=== PATIENT | male | born 1950 | race Caucasian/White ===

== ENCOUNTER 2018-10-04 19:10 | Emergency (ER) | payer MEDICARE, OTHER ==
[~2018-10-04] VITALS: Ht 188 cm; Wt 112.5 kg
[~2018-10-04 19:10] MED LIST: CARV-50 PO
[2018-10-04] MEDS ORDERED: oxymetazoline 15 ML nasal spray NS ONE (19:30)
[2018-10-04 20:12] VITALS: BP 169/111
== END 2018-10-04 21:22 | disposition home or self-care (01) ==
LOC: ER 19:11
DX: R04.0 Epistaxis (principal); E78.00 Pure hypercholesterolemia, unspecified; I10 Essential (primary) hypertension; Z90.49 Acquired absence of other specified parts of digestive tract; Z98.890 Other specified postprocedural states; Z88.8 Allergy status to other drugs, medicaments and biological substances; Z79.899 Other long term (current) drug therapy
CPT/HCPCS: 99282

== ENCOUNTER 2018-12-14 14:34 | Outpatient (CLI) | payer MEDICARE, OTHER ==
[2018-12-14 15:18] LABS: BASOPHILS % (AUTO) 0.7 % (0-1); EOSINOPHILS # (AUTO) 0.3 X10'3 (0-0.9); HEMATOCRIT 44.7 % (42.0-52.0); HEMOGLOBIN 14.8 g/dl (14.0-17.9); LYMPHOCYTES # (AUTO) 1.8 X10'3 (1.1-4.8); LYMPHOCYTES % (AUTO) 26.4 % (21-51); MEAN CORPUSCULAR HEMOGLOBIN 29.2 PG (27.0-31.0); MEAN CORPUSCULAR VOLUME 88.6 FL (78-98); MEAN PLATELET VOLUME 8.4 FL (7.4-10.4); MONOCYTES # (AUTO) 0.5 X10'3 (0-0.9); MONOCYTES % (AUTO) 7.2 % (2-12); NEUTROPHILS # (AUTO) 4.3 X10'3 (1.8-7.7); NEUTROPHILS % (AUTO) 61.7 % (42-75); PLATELET COUNT 203 X10'3 (140-440); RED BLOOD COUNT 5.05 X10'6 (4.70-6.10); RED CELL DISTRIBUTION WIDTH 14.1 % (11.5-14.5)
[2018-12-14 15:30] LABS: PARTIAL THROMBOPLASTIN TIME 29 SECONDS (22-32); PROTHROMBIN TIME 10.3 SECONDS (9.0-12.0)
[2018-12-14 15:38] LABS: ALANINE AMINOTRANSFERASE 23 U/L (12-78); ALBUMIN 3.2 G/DL (3.4-5.0); ALKALINE PHOSPHATASE 91 IU/L (46-116); ANION GAP 8 (8-16); ASPARTATE AMINO TRANSFERASE 13 U/L (10-37); BILIRUBIN,TOTAL 0.2 MG/DL (0.1-1.0); BLOOD UREA NITROGEN 28 MG/DL (7-18); BUN/CREATININE RATIO 15.4 (5.4-32.0); CALCIUM 8.7 MG/DL (8.5-10.1); CHLORIDE 107 MMOL/L (99-107); CREATININE 1.82 MG/DL (0.60-1.10); GLUCOSE 130 MG/DL (70-104); SODIUM 142 MMOL/L (135-145); TOTAL CARBON DIOXIDE 27.4 MMOL/L (24-32); TOTAL PROTEIN 6.4 G/DL (6.4-8.2); eGFR 37 ML/MIN
== END 2018-12-14 23:59 | disposition home or self-care (01) ==
LOC: LAB 14:34
PROVIDERS: ATTEND Otolaryngology
DX: D69.1 Qualitative platelet defects (principal); Z88.6 Allergy status to analgesic agent
CPT/HCPCS: 36415; 80053; 85025; 85576; 85610; 85730

== ENCOUNTER 2019-10-19 18:44 | Inpatient (IN) | payer MEDICARE, OTHER ==
[~2019-10-19] VITALS: Ht 188 cm; Wt 107.7 kg
[2019-10-19] MEDS ORDERED: normal saline 1000ml 1,000 ML IVB ONE (18:56)
[2019-10-19 19:25] LABS: BASOPHILS # (AUTO) 0.1 X10'3 (0-0.2); BASOPHILS % (AUTO) 0.6 % (0-1); EOSINOPHILS # (AUTO) 0.2 X10'3 (0-0.9); EOSINOPHILS % (AUTO) 1.6 % (0-6); HEMATOCRIT 43.8 % (42.0-52.0); HEMOGLOBIN 14.8 g/dl (14.0-17.9); LYMPHOCYTES # (AUTO) 1.3 X10'3 (1.1-4.8); LYMPHOCYTES % (AUTO) 10.3 % (21-51); MEAN CORPUSCULAR HEMOGLOBIN 30.3 PG (27.0-31.0); MEAN CORPUSCULAR HGB CONC 33.7 g/dL (33.0-36.5); MEAN CORPUSCULAR VOLUME 89.8 FL (78-98); MEAN PLATELET VOLUME 8.4 FL (7.4-10.4); MONOCYTES # (AUTO) 1.1 X10'3 (0-0.9); MONOCYTES % (AUTO) 8.7 % (2-12); NEUTROPHILS # (AUTO) 9.8 X10'3 (1.8-7.7); NEUTROPHILS % (AUTO) 78.8 % (42-75); PLATELET COUNT 182 X10'3 (140-440); RED BLOOD COUNT 4.88 X10'6 (4.70-6.10); RED CELL DISTRIBUTION WIDTH 13.7 % (11.5-14.5); WHITE BLOOD COUNT 12.4 X10'3 (4.5-11.0)
[2019-10-19 19:35] LABS: ALANINE AMINOTRANSFERASE 20 U/L (12-78); ALBUMIN 3.2 G/DL (3.4-5.0); ALBUMIN/GLOBULIN RATIO 0.9 (1.1-1.5); ALKALINE PHOSPHATASE 92 IU/L (46-116); ANION GAP 8 (8-16); ASPARTATE AMINO TRANSFERASE 14 U/L (10-37); BILIRUBIN,TOTAL 0.5 MG/DL (0.1-1.0); BLOOD UREA NITROGEN 27 MG/DL (7-18); CALCIUM 8.8 MG/DL (8.5-10.1); CHLORIDE 107 MMOL/L (99-107); CREATININE 1.93 MG/DL (0.60-1.10); GLUCOSE 162 MG/DL (70-104); LIPASE 131 U/L (73-393); POTASSIUM 4.4 MMOL/L (3.5-5.1); SODIUM 140 MMOL/L (135-145); TOTAL CARBON DIOXIDE 24.7 MMOL/L (24-32); TOTAL PROTEIN 6.7 G/DL (6.4-8.2); eGFR 35 ML/MIN
--- NOTE | 2019-10-19 20:14 | NUR ---
pt up out of bed to have bm . most of the OUTPUT IS CASTRO BLOOD MIXED WITH STOOL . PT DENIES TAKING BLOOD THINNERS ADN IBPROFEN HE HAS ONLY ONE KIDNEY. PT REPORTED FEELING FAINT . APPLIED O2 VIA NC FOR A DROP IN SATS TO 93 % RA IMMEDIATE INCREASE TO 97 % ON 3 LITERS. HEART MONITOR APPLIED AND DR BLOOD CALLED TO THE ROOM
[2019-10-19] MEDS ORDERED: tranexamic acid 100mg/ml inj. IV ONE (20:15)
[2019-10-19] MEDS ORDERED: normal saline 1000ML IV soln IVB ONE (20:15)
[2019-10-19] MEDS ORDERED: tranexamic acid inj. 1,080 MG in normal saline 100ml IV soln 100 ML IV ONE (20:20)
[2019-10-19 20:26] LABS: PARTIAL THROMBOPLASTIN TIME 30 SECONDS (22-32)
[2019-10-19 20:43] LABS: HEMOGLOBIN 13.9 g/dl (14.0-17.9); MEAN CORPUSCULAR HEMOGLOBIN 30.3 PG (27.0-31.0); MEAN CORPUSCULAR HGB CONC 33.8 g/dL (33.0-36.5); MEAN CORPUSCULAR VOLUME 89.7 FL (78-98); MEAN PLATELET VOLUME 8.6 FL (7.4-10.4); PLATELET COUNT 193 X10'3 (140-440); RED BLOOD COUNT 4.58 X10'6 (4.70-6.10); RED CELL DISTRIBUTION WIDTH 14.1 % (11.5-14.5); WHITE BLOOD COUNT 14.2 X10'3 (4.5-11.0)
--- NOTE | 2019-10-19 20:45 | NUR ---
PT HAD APPROX 600 ML OF FRNAK RED BLOOD BM AWARE
--- NOTE | 2019-10-19 21:29 | NUR ---
PT UPDATED PLAN OF CARE . AWAITING HOSPITALIST
[2019-10-19 21:44] LABS: CLARITY,URINE SLIGHTLY CLOUDY (Clear); COLOR,URINE YELLOW (Yellow); GLUCOSE, URINE NEGATIVE (Neg); KETONES,URINE NEGATIVE (Neg); LEUKOCYTE ESTERASE ,URINE SMALL (Neg); NITRITES, URINE POSITIVE (Neg); OCCULT BLOOD,URINE NEGATIVE (Neg); PROTEIN,URINE 30 mg/dl (Neg); UROBILINOGEN,URINE 0.2 E.U/dL (0.2-1.0)
[2019-10-19 21:51] LABS: UA COLLECTION TYPE CLN CATCH MIDSTREAM
[2019-10-19 21:54] LABS: BACTERIA,URINE 3+ /HPF (Neg); RBC,URINE 0-2 /HPF (0-2); SQUAMOUS EPITHELIAL CELL,UR FEW /LPF (FEW)
[2019-10-19] MEDS ORDERED: ipratropium/albuterol 3ml nebule NEB PRN (22:25)
[2019-10-19] MEDS ORDERED: ondansetron/PF 4mg/2ml inj IV PRN (22:25)
[2019-10-19] MEDS ORDERED: potassium Cl 20 mEq SR tablet PO PRN ×2 (22:25)
[2019-10-19] MEDS ORDERED: mag hydrox/Alum hydrox/simeth 30ml oral suspension PO PRN (22:25)
[2019-10-19] MEDS ORDERED: magnesium 4gm in 100ml NS 100 ML IV PRN (22:25)
[2019-10-19] MEDS ORDERED: potassium CL 10mEq/100ml bag 100 ML IV PRN ×2 (22:25)
[2019-10-19] MEDS ORDERED: acetaminophen 325mg tablet PO PRN (22:25)
[2019-10-19] MEDS ORDERED: magnesium 2GM in 50ml NS 50 ML IV PRN (22:25)
[2019-10-19] MEDS: normal saline 1000ml 1,000 ML IV SCH (23:15)
--- NOTE | 2019-10-19 23:26 | NUR ---
HAD TECH PAGE RESP FOR TREATMENT ORDER AT [id number]
[2019-10-19] MEDS: metroNIDAZOLE-Flagyl 500mg/NS 100 ML IV SCH (23:56)
[2019-10-20 00:30] VITALS: BP 104/64
[2019-10-20] MEDS: temazepam 15mg capsule PO PRN ×2 (01:50→21:50)
[2019-10-20 05:26] LABS: BASOPHILS % (AUTO) 0.3 % (0-1); EOSINOPHILS # (AUTO) 0.1 X10'3 (0-0.9); EOSINOPHILS % (AUTO) 0.9 % (0-6); HEMATOCRIT 33.2 % (42.0-52.0); HEMOGLOBIN 11.2 g/dl (14.0-17.9); LYMPHOCYTES # (AUTO) 1.8 X10'3 (1.1-4.8); LYMPHOCYTES % (AUTO) 15.7 % (21-51); MEAN CORPUSCULAR HEMOGLOBIN 30.4 PG (27.0-31.0); MEAN CORPUSCULAR HGB CONC 33.8 g/dL (33.0-36.5); MEAN CORPUSCULAR VOLUME 89.9 FL (78-98); MEAN PLATELET VOLUME 8.8 FL (7.4-10.4); MONOCYTES # (AUTO) 0.9 X10'3 (0-0.9); NEUTROPHILS # (AUTO) 8.8 X10'3 (1.8-7.7); NEUTROPHILS % (AUTO) 75.1 % (42-75); PLATELET COUNT 161 X10'3 (140-440); RED CELL DISTRIBUTION WIDTH 13.5 % (11.5-14.5); WHITE BLOOD COUNT 11.7 X10'3 (4.5-11.0)
[2019-10-20 05:46] LABS: ALANINE AMINOTRANSFERASE 15 U/L (12-78); ALBUMIN 2.4 G/DL (3.4-5.0); ALBUMIN/GLOBULIN RATIO 0.8 (1.1-1.5); ALKALINE PHOSPHATASE 65 IU/L (46-116); ANION GAP 7 (8-16); ASPARTATE AMINO TRANSFERASE 10 U/L (10-37); BILIRUBIN,TOTAL 0.4 MG/DL (0.1-1.0); BLOOD UREA NITROGEN 30 MG/DL (7-18); BUN/CREATININE RATIO 15.5 (5.4-32.0); CALCIUM 8.1 MG/DL (8.5-10.1); CHLORIDE 112 MMOL/L (99-107); CREATININE 1.94 MG/DL (0.60-1.10); GLUCOSE 145 MG/DL (70-104); MAGNESIUM 1.7 MG/DL (1.5-2.4); POTASSIUM 4.6 MMOL/L (3.5-5.1); SODIUM 143 MMOL/L (135-145); TOTAL PROTEIN 5.3 G/DL (6.4-8.2); eGFR 35 ML/MIN
--- NOTE | 2019-10-20 06:20 | NUR ---
Problems reprioritized. Patient report given, questions answered & plan of care reviewed with GEORGIA Prater.
--- NOTE | 2019-10-20 06:34 | NUR ---
Patient in room [facility]I 345. I have received report from GIANA Garcia RN and had the opportunity to ask questions and assume patient care.
[2019-10-20 07:00] VITALS: BP 126/75
[2019-10-20] MEDS: carVEDilol 12.5mg tablet PO SCH ×2 (07:11→20:24)
[2019-10-20] MEDS: metroNIDAZOLE-Flagyl 500mg/NS 100 ML IV SCH ×2 (07:12→16:53)
[2019-10-20] MEDS: K and/or MAG REPLACEMENT MC SCH ×2 (08:00→20:00)
[2019-10-20] MEDS: normal saline 1000ml 1,000 ML IV SCH ×2 (08:21→12:56)
[2019-10-20] MEDS: ciprofloxacin/D5W 200mg/100mL 100 ML IV SCH ×2 (08:53→20:24)
[2019-10-20 11:00] VITALS: BP 114/73
--- NOTE | 2019-10-20 12:24 | NUR ---
Patient seen by Dr Troncoso and Dr Ramos, commenced on clear liquid diet to advance as tolerates. No c/o pain or bloody BM. will continue to monitor.
--- NOTE | 2019-10-20 18:26 | NUR ---
Problems reprioritized. Patient report given, questions answered & plan of care reviewed with Tila HO.
--- NOTE | 2019-10-20 18:34 | NUR ---
Patient in room AMI 349. I have received report from GEORGIA Prater and had the opportunity to ask questions and assume patient care.
[2019-10-20 20:00] VITALS: BP 140/84
[2019-10-20] MEDS: lactobacillus rhamnosus 10,000 MMU CELLS/CAPSULE PO SCH (20:23)
[2019-10-21] VITALS: BP 115/68
[2019-10-21] MEDS: metroNIDAZOLE-Flagyl 500mg/NS 100 ML IV SCH ×2 (00:10→07:07)
[2019-10-21] MEDS: normal saline 1000ml 1,000 ML IV SCH (00:11)
[2019-10-21 05:17] LABS: BASOPHILS # (AUTO) 0.1 X10'3 (0-0.2); BASOPHILS % (AUTO) 0.7 % (0-1); EOSINOPHILS # (AUTO) 0.2 X10'3 (0-0.9); EOSINOPHILS % (AUTO) 3.1 % (0-6); HEMATOCRIT 29.5 % (42.0-52.0); HEMOGLOBIN 10.2 g/dl (14.0-17.9); LYMPHOCYTES # (AUTO) 1.6 X10'3 (1.1-4.8); LYMPHOCYTES % (AUTO) 21.1 % (21-51); MEAN CORPUSCULAR HEMOGLOBIN 30.8 PG (27.0-31.0); MEAN CORPUSCULAR HGB CONC 34.6 g/dL (33.0-36.5); MEAN CORPUSCULAR VOLUME 89.1 FL (78-98); MEAN PLATELET VOLUME 8.6 FL (7.4-10.4); MONOCYTES # (AUTO) 0.5 X10'3 (0-0.9); MONOCYTES % (AUTO) 6.6 % (2-12); NEUTROPHILS % (AUTO) 68.5 % (42-75); PLATELET COUNT 153 X10'3 (140-440); RED BLOOD COUNT 3.31 X10'6 (4.70-6.10); RED CELL DISTRIBUTION WIDTH 13.8 % (11.5-14.5); WHITE BLOOD COUNT 7.4 X10'3 (4.5-11.0)
[2019-10-21 05:30] LABS: ALANINE AMINOTRANSFERASE 15 U/L (12-78); ALBUMIN 2.3 G/DL (3.4-5.0); ALBUMIN/GLOBULIN RATIO 0.8 (1.1-1.5); ALKALINE PHOSPHATASE 60 IU/L (46-116); ANION GAP 9 (8-16); ASPARTATE AMINO TRANSFERASE 9 U/L (10-37); BILIRUBIN,TOTAL 0.2 MG/DL (0.1-1.0); BLOOD UREA NITROGEN 27 MG/DL (7-18); BUN/CREATININE RATIO 17.3 (5.4-32.0); CALCIUM 7.9 MG/DL (8.5-10.1); CHLORIDE 113 MMOL/L (99-107); CREATININE 1.56 MG/DL (0.60-1.10); GLUCOSE 156 MG/DL (70-104); MAGNESIUM 1.6 MG/DL (1.5-2.4); POTASSIUM 3.8 MMOL/L (3.5-5.1); SODIUM 144 MMOL/L (135-145); TOTAL CARBON DIOXIDE 22.3 MMOL/L (24-32); TOTAL PROTEIN 5.2 G/DL (6.4-8.2); eGFR 45 ML/MIN
--- NOTE | 2019-10-21 06:40 | NUR ---
Problems reprioritized. Patient report given, questions answered & plan of care reviewed with GEORGIA Judd.
[2019-10-21] MEDS: carVEDilol 12.5mg tablet PO SCH (07:06)
[2019-10-21] MEDS: lactobacillus rhamnosus 10,000 MMU CELLS/CAPSULE PO SCH (07:06)
[2019-10-21 07:29] VITALS: BP 132/85
[2019-10-21] MEDS: K and/or MAG REPLACEMENT MC SCH (08:00)
[2019-10-21] MEDS: ciprofloxacin/D5W 200mg/100mL 100 ML IV SCH (09:32)
[2019-10-21] MEDS ORDERED: LACT1CAP26 PO (10:48)
[2019-10-21] MEDS ORDERED: METR500T PO (10:48)
[2019-10-21] MEDS ORDERED: CEFD300C3 PO (10:48)
--- NOTE | 2019-10-21 10:56 | NUR ---
Aware of discharge. MD made aware of black/bloody stool this AM. Awaiting response.
[2019-10-21 11:45] VITALS: BP 144/88
--- NOTE | 2019-10-21 12:00 | NUR ---
Waiting on STAT hemogram results. stated if H&H is the same or increased- ok to discharge pt. for outpatient therapy.
[2019-10-21 12:31] LABS: HEMATOCRIT 32.7 % (42.0-52.0); HEMOGLOBIN 11.2 g/dl (14.0-17.9); MEAN CORPUSCULAR HEMOGLOBIN 30.9 PG (27.0-31.0); MEAN CORPUSCULAR HGB CONC 34.3 g/dL (33.0-36.5); MEAN CORPUSCULAR VOLUME 89.9 FL (78-98); MEAN PLATELET VOLUME 8.8 FL (7.4-10.4); PLATELET COUNT 201 X10'3 (140-440); RED BLOOD COUNT 3.64 X10'6 (4.70-6.10); RED CELL DISTRIBUTION WIDTH 13.8 % (11.5-14.5); WHITE BLOOD COUNT 8.4 X10'3 (4.5-11.0)
--- NOTE | 2019-10-21 13:08 | NUR ---
Hemogram results indicate pt. can be discharged. Preparing pt. for discharge now.
--- NOTE | 2019-10-21 13:52 | NUR ---
PT. off unit.
--- NOTE | 2019-10-21 14:00 | NUR ---
Pt. left in a stable condition and is aware to follow up with outpatient therapies. Medications and discharge paperwork reviewed with pt. 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 ASE reviewed with pt. IV DC'd, pressure bandage applied, no s/sx of bleeding noted. Pt. left with all of his belongings, escorted from hospital by staff member or volunteer to private vehicle to discharge home.
== END 2019-10-21 13:50 | disposition home or self-care (01) | DRG 378 ==
LOC: ER 18:44 → ED HOLD 22:21 → SUR 3N 10-20 00:30
PROVIDERS: ADMIT Family Medicine; ATTEND Family Medicine
DX: K57.33 Diverticulitis of large intestine without perforation or abscess with bleeding (principal); D62 Acute posthemorrhagic anemia; E78.00 Pure hypercholesterolemia, unspecified; I12.9 Hypertensive chronic kidney disease with stage 1 through stage 4 chronic kidney disease, or unspecified chronic kidney disease; N18.9 Chronic kidney disease, unspecified; I25.2 Old myocardial infarction; Z82.0 Family history of epilepsy and other diseases of the nervous system; Z82.49 Family history of ischemic heart disease and other diseases of the circulatory system; Z87.442 Personal history of urinary calculi; Z90.49 Acquired absence of other specified parts of digestive tract; Z88.8 Allergy status to other drugs, medicaments and biological substances
CPT/HCPCS: 36415; 74176; 80053; 81001; 83690; 83735; 85025; 85027; 85610; 85730; 86885; 86900; 86901; 87081; 87088; 94760; 96365; 96368; 99285; G0378; J0744; J3490; J7030

== ENCOUNTER 2021-06-29 20:37 | Inpatient (IN) | payer MEDICARE ==
[~2021-06-29] VITALS: Ht 188 cm; Wt 100.5 kg
[~2021-06-29 20:37] MED LIST changes: +FLO0.4C PO; +HYDR-3965 PO; +LACT1CAP26 PO; +NOR5T PO; +OXYB5TAB16 PO; +PHEN-786 PO; +tamsulosin capsule PO
[2021-06-29 21:29] LABS: BASOPHILS % (AUTO) 0.2 % (0-1); EOSINOPHILS % (AUTO) 0 % (0-6); HEMATOCRIT 40.1 % (42.0-52.0); HEMOGLOBIN 13.2 g/dl (14.0-17.9); LYMPHOCYTES # (AUTO) 0.7 X10'3 (1.1-4.8); LYMPHOCYTES % (AUTO) 5.4 % (21-51); MEAN CORPUSCULAR HEMOGLOBIN 28.3 PG (27.0-31.0); MEAN CORPUSCULAR HGB CONC 32.9 g/dL (33.0-36.5); MEAN CORPUSCULAR VOLUME 86.2 FL (78-98); MEAN PLATELET VOLUME 8.8 FL (7.4-10.4); MONOCYTES # (AUTO) 1.3 X10'3 (0-0.9); MONOCYTES % (AUTO) 9.4 % (2-12); NEUTROPHILS # (AUTO) 11.3 X10'3 (1.8-7.7); PLATELET COUNT 195 X10'3 (140-440); RED BLOOD COUNT 4.65 X10'6 (4.70-6.10); RED CELL DISTRIBUTION WIDTH 15.9 % (11.5-14.5); WHITE BLOOD COUNT 13.3 X10'3 (4.5-11.0)
[2021-06-29 21:49] LABS: ALANINE AMINOTRANSFERASE 14 U/L (12-78); ALBUMIN 3.1 G/DL (3.4-5.0); ALBUMIN/GLOBULIN RATIO 0.8 (1.1-1.5); ALKALINE PHOSPHATASE 100 IU/L (46-116); ANION GAP 12 (8-16); ASPARTATE AMINO TRANSFERASE 11 U/L (10-37); BILIRUBIN,TOTAL 0.6 MG/DL (0.1-1.0); BLOOD UREA NITROGEN 28 MG/DL (7-18); CALCIUM 8.9 MG/DL (8.5-10.1); CHLORIDE 106 MMOL/L (99-107); GLUCOSE 194 MG/DL (70-104); POTASSIUM 4.2 MMOL/L (3.5-5.1); SODIUM 140 MMOL/L (135-145); TOTAL CARBON DIOXIDE 22.2 MMOL/L (24-32); TOTAL PROTEIN 7.2 G/DL (6.4-8.2); eGFR 23 ML/MIN
[2021-06-29 21:58] LABS: CLARITY,URINE SLIGHTLY CLOUDY (Clear); COLOR,URINE YELLOW (Yellow); GLUCOSE, URINE NEGATIVE (Neg); KETONES,URINE NEGATIVE (Neg); LEUKOCYTE ESTERASE ,URINE LARGE (Neg); NITRITES, URINE NEGATIVE (Neg); OCCULT BLOOD,URINE LARGE (Neg); PH,URINE 5.5 (4.8-8.0); PROTEIN,URINE 100 mg/dl (Neg); UROBILINOGEN,URINE 0.2 E.U/dL (0.2-1.0)
[2021-06-29 22:07] LABS: UA COLLECTION TYPE CLN CATCH MIDSTREAM
[2021-06-29 22:09] LABS: BACTERIA,URINE 2+ /HPF (Neg); RBC,URINE 50-100 /HPF (0-2); WBC,URINE 30-50 /HPF (0-4)
[2021-06-29 22:11] LABS: MUCUS STRANDS NONE SEEN /LPF (Neg); SQUAMOUS EPITHELIAL CELL,UR FEW /LPF (FEW); WBC CLUMPS,URINE FEW /HPF (NEGATIVE)
[2021-06-29] MEDS ORDERED: CefTRIAXone/D5W-Rocephin 1gm 50 ML IV ONE (22:25)
[2021-06-29] MEDS ORDERED: HYDROcodone/acetaminophen 5mg/325mg tablet PO PRN (23:10)
[2021-06-29] MEDS ORDERED: mag hydrox/Alum hydrox/simeth 30ml oral suspension PO PRN (23:10)
[2021-06-29] MEDS ORDERED: acetaminophen 325mg tablet PO PRN (23:10)
[2021-06-29] MEDS ORDERED: magnesium hydroxide 30ml (MOM) UD suspension PO PRN (23:10)
[2021-06-29] MEDS ORDERED: ondansetron/PF 4mg/2ml inj IV PRN (23:10)
[2021-06-30] MEDS: normal saline 1000ml 1,000 ML IV SCH ×3 (00:04→16:16)
[2021-06-30] MEDS: WATER IV SCH (00:55)
[2021-06-30] MEDS: DEXTROSE 5% IV SCH (00:55)
[2021-06-30] MEDS: PENICILLIN POTASSIUM IV SCH (00:55)
[2021-06-30 03:56] LABS: BASOPHILS # (AUTO) 0.1 X10'3 (0-0.2); BASOPHILS % (AUTO) 0.4 % (0-1); EOSINOPHILS % (AUTO) 0 % (0-6); HEMOGLOBIN 12.7 g/dl (14.0-17.9); LYMPHOCYTES # (AUTO) 0.7 X10'3 (1.1-4.8); LYMPHOCYTES % (AUTO) 4.8 % (21-51); MEAN CORPUSCULAR HEMOGLOBIN 28.4 PG (27.0-31.0); MEAN CORPUSCULAR HGB CONC 32.6 g/dL (33.0-36.5); MEAN CORPUSCULAR VOLUME 86.9 FL (78-98); MEAN PLATELET VOLUME 8.7 FL (7.4-10.4); MONOCYTES # (AUTO) 1.4 X10'3 (0-0.9); MONOCYTES % (AUTO) 9.6 % (2-12); NEUTROPHILS # (AUTO) 12.2 X10'3 (1.8-7.7); NEUTROPHILS % (AUTO) 85.2 % (42-75); PLATELET COUNT 164 X10'3 (140-440); RED BLOOD COUNT 4.48 X10'6 (4.70-6.10); WHITE BLOOD COUNT 14.3 X10'3 (4.5-11.0)
[2021-06-30 04:03] LABS: ALANINE AMINOTRANSFERASE 14 U/L (12-78); ALBUMIN 2.7 G/DL (3.4-5.0); ALBUMIN/GLOBULIN RATIO 0.7 (1.1-1.5); ALKALINE PHOSPHATASE 91 IU/L (46-116); ANION GAP 11 (8-16); ASPARTATE AMINO TRANSFERASE 11 U/L (10-37); BILIRUBIN,TOTAL 0.5 MG/DL (0.1-1.0); BLOOD UREA NITROGEN 30 MG/DL (7-18); BUN/CREATININE RATIO 11.2 (5.4-32.0); CALCIUM 8.3 MG/DL (8.5-10.1); CHLORIDE 107 MMOL/L (99-107); CREATININE 2.69 MG/DL (0.60-1.10); GLUCOSE 171 MG/DL (70-104); POTASSIUM 4.4 MMOL/L (3.5-5.1); SODIUM 139 MMOL/L (135-145); TOTAL CARBON DIOXIDE 20.9 MMOL/L (24-32); TOTAL PROTEIN 6.7 G/DL (6.4-8.2); eGFR 24 ML/MIN
[2021-06-30] MEDS ORDERED: piperacillin/tazo 4.5gm/100ml 100 ML IV SCH (08:00)
[2021-06-30] MEDS: docusate sod 100mg capsule PO SCH ×2 (08:06→20:21)
[2021-06-30] MEDS: carVEDilol 12.5mg tablet PO SCH ×2 (08:07→20:22)
[2021-06-30] MEDS: tamsulosin 0.4mg capsule PO SCH (08:07)
[2021-06-30] MEDS: amLODIPine 5mg tablet PO SCH (08:08)
[2021-06-30 11:00] VITALS: BP 102/60
--- NOTE | 2021-06-30 14:57 | NUR ---
PAGER ID: [phone] MESSAGE: Jonatan Benítez [id number] seems to be diabetic. past A1c 6.6. Accucheck?hypo/hyper glycemia? CC diet? Binta [id number]
--- NOTE | 2021-06-30 18:32 | NUR ---
Gave report to Sarah Smith RN.
--- NOTE | 2021-06-30 18:35 | NUR ---
Patient in room [facility]I 348. I have received report from JESSICA HO and had the opportunity to ask questions and assume patient care.
[2021-06-30 19:00] VITALS: BP 119/71
[2021-06-30] MEDS: lactobacillus rhamnosus 10,000 MMU CELLS/CAPSULE PO SCH (20:21)
[2021-07-01] VITALS: BP 110/66
[2021-07-01] MEDS: DEXTROSE 5% IV SCH (01:15)
[2021-07-01] MEDS: WATER IV SCH (01:15)
[2021-07-01] MEDS: PENICILLIN POTASSIUM IV SCH (01:15)
[2021-07-01] MEDS: normal saline 1000ml 1,000 ML IV SCH (01:20)
--- NOTE | 2021-07-01 06:30 | NUR ---
Problems reprioritized. Patient report given, questions answered & plan of care reviewed with RODOLFO HO.
--- NOTE | 2021-07-01 06:46 | NUR ---
Patient in room [facility]I 348. I have received report from Hector HO and had the opportunity to ask questions and assume patient care.
[2021-07-01 06:58] LABS: BASOPHILS % (AUTO) 0.2 % (0-1); EOSINOPHILS # (AUTO) 0.1 X10'3 (0-0.9); EOSINOPHILS % (AUTO) 0.7 % (0-6); HEMATOCRIT 33.8 % (42.0-52.0); HEMOGLOBIN 11.6 g/dl (14.0-17.9); LYMPHOCYTES # (AUTO) 1.4 X10'3 (1.1-4.8); LYMPHOCYTES % (AUTO) 13.1 % (21-51); MEAN CORPUSCULAR HEMOGLOBIN 28.8 PG (27.0-31.0); MEAN CORPUSCULAR HGB CONC 34.3 g/dL (33.0-36.5); MEAN CORPUSCULAR VOLUME 84.1 FL (78-98); MEAN PLATELET VOLUME 8.7 FL (7.4-10.4); MONOCYTES % (AUTO) 8.9 % (2-12); NEUTROPHILS # (AUTO) 8.3 X10'3 (1.8-7.7); NEUTROPHILS % (AUTO) 77.1 % (42-75); PLATELET COUNT 156 X10'3 (140-440); RED BLOOD COUNT 4.02 X10'6 (4.70-6.10); RED CELL DISTRIBUTION WIDTH 16.2 % (11.5-14.5); WHITE BLOOD COUNT 10.8 X10'3 (4.5-11.0)
[2021-07-01 07:00] VITALS: BP 120/72
[2021-07-01 07:06] LABS: ALANINE AMINOTRANSFERASE 13 U/L (12-78); ALBUMIN 2.3 G/DL (3.4-5.0); ALBUMIN/GLOBULIN RATIO 0.6 (1.1-1.5); ALKALINE PHOSPHATASE 77 IU/L (46-116); ANION GAP 10 (8-16); ASPARTATE AMINO TRANSFERASE 9 U/L (10-37); BILIRUBIN,TOTAL 0.3 MG/DL (0.1-1.0); BLOOD UREA NITROGEN 31 MG/DL (7-18); BUN/CREATININE RATIO 14.6 (5.4-32.0); CHLORIDE 111 MMOL/L (99-107); CREATININE 2.13 MG/DL (0.60-1.10); GLUCOSE 130 MG/DL (70-104); POTASSIUM 3.9 MMOL/L (3.5-5.1); SODIUM 144 MMOL/L (135-145); TOTAL CARBON DIOXIDE 22.8 MMOL/L (24-32); TOTAL PROTEIN 5.9 G/DL (6.4-8.2); eGFR 31 ML/MIN
[2021-07-01] MEDS: amLODIPine 5mg tablet PO SCH (08:04)
[2021-07-01] MEDS: docusate sod 100mg capsule PO SCH (08:04)
[2021-07-01] MEDS: tamsulosin 0.4mg capsule PO SCH (08:04)
[2021-07-01] MEDS: lactobacillus rhamnosus 10,000 MMU CELLS/CAPSULE PO SCH (08:04)
[2021-07-01] MEDS: carVEDilol 12.5mg tablet PO SCH (08:04)
[2021-07-01] MEDS ORDERED: [UNRECOGNIZED DRUG - CODE] PO (11:28)
[2021-07-01] MEDS ORDERED: AMPI500C65 PO (11:28)
[2021-07-01 12:16] VITALS: BP 109/65
--- NOTE | 2021-07-01 12:37 | NUR ---
Patient up and about seen by Dr polo is for discharge and follow up with DR Lazar . All DC instructions given to patient and family.patient appears stable for DC. Dc home via private car with spouse 1300hrs.
== END 2021-07-01 13:00 | disposition home or self-care (01) | DRG 689 ==
LOC: ER 20:38 → UNDOADMIN 23:10 → ED HOLD 23:10 → UNDOADMIN 23:12 → ED HOLD 06-30 06:36 → SUR 3N 06-30 06:36 → UNDODISIN 07-01 13:00
PROVIDERS: ADMIT Internal Medicine; ATTEND Family Medicine
DX: N39.0 Urinary tract infection, site not specified (principal); N17.0 Acute kidney failure with tubular necrosis; E78.00 Pure hypercholesterolemia, unspecified; I10 Essential (primary) hypertension; B95.2 Enterococcus as the cause of diseases classified elsewhere; N20.0 Calculus of kidney; Z82.0 Family history of epilepsy and other diseases of the nervous system; Z82.49 Family history of ischemic heart disease and other diseases of the circulatory system; Z87.442 Personal history of urinary calculi; Z90.49 Acquired absence of other specified parts of digestive tract; Z88.8 Allergy status to other drugs, medicaments and biological substances; Z79.899 Other long term (current) drug therapy
CPT/HCPCS: 36415; 71045; 80053; 81001; 83605; 84145; 85025; 87040; 87077; 87081; 87088; 87186; 96365; 99285; G0378; J0696; J2540; J7030; J7070

== ENCOUNTER 2021-08-12 23:29 | Emergency (ER) | payer MEDICARE ==
[~2021-08-12] VITALS: Ht 188 cm; Wt 101.8 kg
[~2021-08-12 23:29] MED LIST changes: -FLO0.4C PO; -HYDR-3965 PO; -LACT1CAP26 PO; -OXYB5TAB16 PO; -PHEN-786 PO; -tamsulosin capsule PO
[2021-08-12] MEDS ORDERED: oxymetazoline 15 ML nasal spray NS ONE (23:50)
--- NOTE | 2021-08-13 00:06 | NUR ---
MD CAME TO PT ROOM VERY QUICKLY; PT HAD EPISTAXIS IN THE RIGHT NARE WITH HX OF ABLASION; MD USED AFRIN AND THEN PLACED A RHINOROCKET IN RIGHT NARE WITH SUCCESSFUL END TO EPISTAXIS; WILL CTM TO ENSURE TREATMENT REMAINS EFFECTIVE. PT TAKES CARVEDILOL 25MG PO AT HOME BID AND HAS NOT TAKEN IT TONIGHT.
--- NOTE | 2021-08-13 00:27 | NUR ---
PT RESTING QUIETLY ON JOSIAS, AT BEDSIDE, NO EPITAXSIS, RELIEVING RN FOR BREAK
[2021-08-13 00:56] VITALS: BP 152/79
== END 2021-08-13 00:57 | disposition home or self-care (01) ==
LOC: ER 23:29
DX: R04.0 Epistaxis (principal); E78.00 Pure hypercholesterolemia, unspecified; I10 Essential (primary) hypertension; Z87.442 Personal history of urinary calculi; Z90.89 Acquired absence of other organs; Z98.890 Other specified postprocedural states; Z88.8 Allergy status to other drugs, medicaments and biological substances; Z79.899 Other long term (current) drug therapy
CPT/HCPCS: 30905; 99284

== ENCOUNTER 2021-09-12 23:55 | Emergency (ER) | payer MEDICARE ==
[~2021-09-12] VITALS: Ht 188 cm; Wt 103.2 kg
[2021-09-13 00:03] VITALS: BP 148/85
[2021-09-13] MEDS ORDERED: oxymetazoline 15 ML nasal spray NS ONE (00:15)
[2021-09-13] MEDS ORDERED: tranexamic acid 100mg/ml inj. TP ONE (00:40)
== END 2021-09-13 02:15 | disposition home or self-care (01) ==
LOC: ER 23:55
DX: R04.0 Epistaxis (principal); E78.00 Pure hypercholesterolemia, unspecified; I10 Essential (primary) hypertension; Z87.442 Personal history of urinary calculi; Z90.89 Acquired absence of other organs; Z98.890 Other specified postprocedural states; Z88.8 Allergy status to other drugs, medicaments and biological substances; Z79.899 Other long term (current) drug therapy
CPT/HCPCS: 30901; 99284

== ENCOUNTER 2022-12-29 14:16 | Emergency (ER) | payer MEDICARE ==
[~2022-12-29] VITALS: Ht 188 cm; Wt 110.5 kg
[2022-12-29 14:22] VITALS: BP 148/101
[2022-12-29] MEDS ORDERED: fluorescein sod 1mg ophthalmic strip LEFTEYE ONE (18:10)
[2022-12-29] MEDS ORDERED: proparacaine 0.5% ophthalmic drops 15ml EACHEYE ONE (18:15)
[2022-12-29] MEDS ORDERED: ciprofloxacin 0.3% 2.5ml ophthalmic solution LEFTEYE ONE (18:45)
[2022-12-29] MEDS ORDERED: CIPR2.5D21 LEFTEYE (18:49)
== END 2022-12-29 19:26 | disposition home or self-care (01) ==
LOC: ER 14:17
DX: S05.02XA Injury of conjunctiva and corneal abrasion without foreign body, left eye, initial encounter (principal); E78.00 Pure hypercholesterolemia, unspecified; I10 Essential (primary) hypertension; Z88.8 Allergy status to other drugs, medicaments and biological substances; X58.XXXA Exposure to other specified factors, initial encounter; Y93.89 Activity, other specified; Y92.89 Other specified places as the place of occurrence of the external cause; Y99.8 Other external cause status
CPT/HCPCS: 99283; A6410

== ENCOUNTER 2023-10-22 08:27 | Emergency (ER) | payer MEDICARE ==
[~2023-10-22] VITALS: Ht 186.7 cm; Wt 105.7 kg
[2023-10-22 08:28] VITALS: BP 136/87; PULSE 71; RESP 16; TEMP 97.8; O2SAT 96
[2023-10-22] MEDS ORDERED: NAPR-56 PO (09:27)
[2023-10-22] MEDS ORDERED: CEPH-585 PO (09:27)
[2023-10-22] MEDS ORDERED: SULF1TAB49 PO (09:27)
== END 2023-10-22 09:46 | disposition home or self-care (01) ==
LOC: ER 08:27
DX: L03.012 Cellulitis of left finger (principal); I10 Essential (primary) hypertension; E78.00 Pure hypercholesterolemia, unspecified; Z87.442 Personal history of urinary calculi; Z90.49 Acquired absence of other specified parts of digestive tract; Z88.8 Allergy status to other drugs, medicaments and biological substances; Z79.899 Other long term (current) drug therapy
CPT/HCPCS: 99283